=== PATIENT | male | born 1930 | race Caucasian/White ===

== ENCOUNTER 2016-08-09 06:40 | Day surgery (SDC) | payer MEDICARE ==
[2016-08-09] MEDS ORDERED: LACTATED RINGERS 1,000 ML ONE ×2 (06:41→12:08)
[2016-08-09] MEDS ORDERED: IV START KIT ONE (06:41)
[2016-08-09] MEDS ORDERED: CEFAZOLIN SODIUM 2 GRAM PREMIX 100 ML IV ONE (06:42)
[2016-08-09] MEDS ORDERED: MIDAZOLAM HCL 1 MG/ML 2ML VIAL ONE (06:56)
[2016-08-09] MEDS ORDERED: CEFAZOLIN SODIUM 2 GRAM PREMIX 100 ML IV PRN (07:00)
[2016-08-09] MEDS ORDERED: GENTAMICIN SULFATE 320 MG in SODIUM CHLORIDE 0.9% 100 ML IV PRN (07:00)
[2016-08-09] MEDS ORDERED: BUPIVACAINE 0.5% (PRES FREE) 30 ML VIAL ONE (07:39)
[2016-08-09] MEDS ORDERED: PROPOFOL 20 ML IV ONE (07:41)
[2016-08-09] MEDS ORDERED: EPHEDRINE SULFATE UD SYR 25 MG 25 MG/5 ML SYRINGE IV ONE (09:08)
[2016-08-09] MEDS ORDERED: PROMETHAZINE HCL 25 MG/ML VIAL IM PRN (09:16)
[2016-08-09] MEDS ORDERED: ONDANSETRON 4 MG/2ML 2 ML VIAL IV PRN (09:16)
[2016-08-09] MEDS ORDERED: MORPHINE SULFATE 4 MG/ML SYRINGE IV PRN (09:16)
[2016-08-09] MEDS ORDERED: FENTANYL 100 MCG/2 ML VIAL IV PRN (09:16)
[2016-08-09] MEDS ORDERED: LACTATED RINGERS 1,000 ML IV SCH (09:30)
[2016-08-09] MEDS ORDERED: EPHEDRINE SULFATE 50 MG/ML 1ML VIAL IV ONE (09:39)
[2016-08-09] MEDS ORDERED: SPINAL PROCEDURAL TRAY 1 EACH ONE (10:40)
[2016-08-09] MEDS ORDERED: MORPHINE SULFATE 2 MG/ML SYRINGE IV PRN (10:57)
[2016-08-09] MEDS ORDERED: HYDROCODONE/ACETAMINOPHEN 5/325MG TABLET PO PRN (10:57)
[2016-08-09] MEDS ORDERED: BUPIVACAINE 0.75% SPINAL AMPUL 2 ML ONE (11:05)
--- NOTE | 2016-08-09 13:16 | OP ---
KERI TOWNSEND [id number] DATE OF OPERATION: August 09, 2016 SURGEON: Anastacio Brothers M.D. RIGGER CHIEF: None. ANESTHESIA: Spinal. 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 PROCEDURES: 1. CYSTOSCOPY. 2. CYSTOSTOMY WITH CHRONIC TUBE DRAINAGE. SPECIMENS: None. INDICATIONS: An 86-year-old man with a greater than one year history of increasing voiding difficulties. He has a history of a prostatic procedure approximately 2002 which is likely to be a prostate resection. Cystoscopy showed a partial recurrent obstruction with asymmetric regrowth and severe trabeculation of the bladder wall and the bladder itself showing signs of chronic over distention. Urodynamic studies were consistent with advanced bladder defunctionalization with retention and requirement for chronic catheterization. He presents now for placement of a chronic suprapubic cystostomy tube to facilitate ongoing care. FINDINGS: The urethra appeared normal. Prostatic fossa was notable for asymmetric regrowth along a previously resected fossa. Bladder neck was open. Bladder wall itself was severely trabeculated and had the appearance of "floppy bag" over-distention. PROCEDURE: The patient was identified and brought to the operating room where spinal anesthetic was applied, and he was placed in a dorsal lithotomy position. The genital region and lower abdomen were prepped and draped sterilely. We marked a site approximately 2 to 3 cm above the pubic brim in the midline and anesthetized this with 0.5% Marcaine. We then opened it with a short, less than 1 cm, incision through the skin. Next, cystoscopy was performed with a 21 Kazakh scope using water as an irrigant. Findings were reports above. We placed the patient in Trendelenburg position as we used the scope to overdistend the bladder. We then passed a large introducer needle through the suprapubic tract into the anterior wall of the bladder under direct visualization. The stylet of the introducer needle was removed, and we directed a floppy tip wire through the introducer needle and directed it down the cystoscope sheath and out through the urethra. With the wire in hand, we removed the cystoscope. After removing the introducer needle, we passed a long kingston catheter and secured it in place. Over the long kingston catheter we used progressive Amplatz dilators up to 24 Kazakh and then passed a 22 Kazakh [place] tip catheter over the long kingston until it was into the bladder. At this point we reintroduced the cystoscope alongside the wire and long kingston catheter and positioned the tip of the deering tip catheter within the balloon with 10 mL of water. We confirmed that the balloon was intravesical and then removed the cystoscope as well at the wire and long kingston catheter. With the tube in good position and draining, we secured it at the level of the skin with #2-0 nylon. Drain sponge was applied. The tube was left to gravity drainage after we irrigated it and confirmed good in-and-out flow. Estimated blood loss less than 10 mL. No early complications. Patient tolerated the procedure well and was taken in stable condition to the post anesthesia room. cc: Anastacio Brothers M.D. Benson Egan M.D.
== END 2016-08-09 13:52 | disposition home or self-care (01) ==
LOC: SDC 06:40
PROVIDERS: ATTEND Urology
PROC: 0T2BX0Z Change Drainage Device in Bladder, External Approach (ICD-10-PCS; principal; 2016-08-09)
DX: R33.8 Other retention of urine (principal); N31.8 Other neuromuscular dysfunction of bladder; I50.9 Heart failure, unspecified; Z87.891 Personal history of nicotine dependence
CPT/HCPCS: 51102; J1580; J2250; J7120 ×2; J7050; J0690